=== PATIENT | female | born 1980 | race Caucasian/White ===

== ENCOUNTER 2018-10-06 17:18 | Emergency (ER) | payer BC, OTHER ==
[2018-10-06] MEDS ORDERED: traMADol 50 MG Tab ONE (18:18)
[2018-10-06] MEDS ORDERED: traMADol 50 MG Tab PO ONE (18:19)
[2018-10-06] MEDS ORDERED: Azithromycin 250 MG Tab ONE (18:20)
[2018-10-06] MEDS ORDERED: Benzonatate 100 MG Cap ONE (18:20)
--- NOTE | 2018-10-06 19:02 | CR ---
DATE OF SERVICE: 10/06/2018 CLINICAL DATA: Cough. PA AND LATERAL CHEST: No priors. The heart size is normal. The lungs are clear. No pneumothorax. No pleural effusions. No evidence of acute intrathoracic disease. [id number] MTDD
--- NOTE | 2018-10-06 20:43 | ER ---
DATE OF SERVICE: 10/06/2018 HISTORY OF PRESENT ILLNESS: The patient is a 38-year-old female comes in with a 3-week history of cough. She notes she thought she was getting better after a week or so and then the last week or so, she started getting worse again. She occasionally coughs up some yellowish sputum. She does not have any shaking chills or shortness of breath, but she notes that she was getting progressively worse. ALLERGIES: ACETAMINOPHEN, CODEINE, AND PERCOCET, ALL OF WHICH GIVE HER HEADACHE. SHE CURRENTLY HAS A HEADACHE AND WOULD LIKE SOMETHING FOR THAT. PAST MEDICAL PROBLEMS: Include atrial fibrillation and cardiomyopathy. CURRENT MEDICATIONS: Levothyroxine 25 mcg p.o. daily, Coreg 3.125 and 12.5 p.o. b.i.d., lisinopril 10 mg p.o. daily, and 81 mg aspirin. She notes her most recent ejection fraction is 55% and she was on Coumadin while in AFib, but is not on it now. PHYSICAL EXAMINATION: GENERAL: She is alert and oriented, no apparent distress, but she does have a harsh cough. VITAL SIGNS: Temperature is 101.3, O2 saturation is 95% on room air, blood pressure is 137/72, O2 saturation is 97%. Her pulse is 95. HEENT: TMs normal. Nares are clear. Throat is minimally erythematous. NECK: Supple. No nodes. LUNGS: Basically clear, although there are some questionable crackles in the right mid lung field. No real wheezes. HEART: Regular sinus rhythm. EXTREMITIES: No clubbing, cyanosis, or edema. IMAGING: We did go ahead and obtain a chest x-ray which did not show any acute infiltrate. Radiology review is pending. ASSESSMENT: Bronchitis. PLAN: I have given the patient some azithromycin as a Z-Marciano. She can take 500 mg a day for 3 days or she can take it to 500 the first day and 250 for 4 more days. 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 She can decide personally and would just take the 500 each day for 3 days. We also gave her a couple of benzonatate tablets for the cough or benzonatate Perles for the cough and a prescription for 20 more. The patient to return to clinic for any worsening symptoms or not getting better over the next several days. ALEJANDRA/REGULO /[id number] MTDD
== END 2018-10-06 18:37 | disposition home or self-care (01) ==
LOC: LB.ED 17:18
DX: J40 Bronchitis, not specified as acute or chronic (principal); I48.91 Unspecified atrial fibrillation; Z88.5 Allergy status to narcotic agent; Z88.6 Allergy status to analgesic agent; Z79.01 Long term (current) use of anticoagulants
CPT/HCPCS: 71046; 99283-25; A9270-GY

== ENCOUNTER 2021-02-20 17:38 | Emergency (ER) | payer MEDICAID, OTHER, SELFPAY ==
--- NOTE | 2021-02-20 18:51 | EDM.PDOC ---
ED HPI GENERAL MEDICAL PROBLEM - General Chief Complaint: Fever Stated Complaint: sore throat, fever Time Seen by Provider: 02/20/21 18:40 Source of Information: Reports: Patient History Limitations: Reports: No Limitations - History of Present Illness INITIAL COMMENTS - FREE TEXT/NARRATIVE: This patient presents to the emergency department for evaluation of a sore throat. She states that she did not feel well last evening and then woke this morning with a fever of 101. She was able to take Tylenol and that seemed to take care of that. She has developed a sore throat during the day today. She denies a cough. Her appetite is fair but she is drinking fluids fairly well. She had one episode of vomiting just prior to arrival and no diarrhea. She did have a negative Covid test today. He has not - Related Data Allergies Allergy/AdvReac Type Severity Reaction Status Date / Time acetaminophen [From Percocet] AdvReac Headache Verified 10/06/18 17:54 codeine AdvReac Headache Verified 10/06/18 17:54 oxycodone [From Percocet] AdvReac Headache Verified 10/06/18 17:54 Home Meds: Home Meds Aspirin 81 mg PO DAILY 02/06/14 [History] carvediloL [Carvedilol] 3.125 mg PO BID 02/06/14 [History] lisinopriL [Prinivil] 10 mg PO DAILY 02/06/14 [History] carvediloL [Carvedilol] 12.5 mg PO BID 05/25/16 [History] Levothyroxine Sodium [Synthroid] 25 mcg PO ACBREAKFAST #30 tab 05/26/16 [Rx] Past Medical History HEENT History: Reports: Impaired Vision Cardiovascular History: Reports: Afib, Cardiomyopathy Other Cardiovascular History: patient has familial cardiomyopathy. 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 HEENT: Reports: Throat Pain, Other (Palpable anterior cervical nodes bilaterally.). Denies: Ear Pain ED EXAM, ENT - Physical Exam Exam: See Below Exam Limited By: No Limitations General Appearance: Alert, No Apparent Distress Eye Exam: Bilateral Eye: Normal Inspection, PERRL Ears: Normal External Exam, Normal TMs Nose: Normal Inspection, Normal Mucousa Mouth/Throat: Throat Pain, Throat Swelling, Tonsillar Erythema, Tonsillar Exudates Course - Orders/Labs/Meds Labs: Laboratory Tests 02/20/21 Range/Units 17:55 SARS CoV-2 RNA Rapid JAYE Negative - Re-Assessments/Exams Free Text/Narrative Re-Assessment/Exam: 02/20/21 18:56 This patient presents to the ER for evaluation of a sore throat. She does have a positive rapid strep in the emergency department. There is no evidence of peritonsillar abscess, retropharyngeal abscess, Lemierre's syndrome, epiglottitis, or Gallito's angina. She will be treated with penicillin, 500 mg 3 times a day orally. Supportive care was discussed. She is to return if she has increasing pain, changes in her voice, neck pain, vomiting, fever, or shortness of breath. She should follow-up with her primary care provided as needed. Departure - Departure Time of Disposition: 19:00 Disposition: Home, Self-Care 01 Condition: Good Clinical Impression: Strep pharyngitis - Discharge Information *PRESCRIPTION DRUG MONITORING PROGRAM REVIEWED*: Not Applicable *COPY OF PRESCRIPTION DRUG MONITORING REPORT IN PATIENT PHI: Not Applicable Instructions: Strep Throat, Adult Referrals: PCP,None [Primary Care Provider] - Forms: ED Department Discharge
[2021-02-20] MEDS ORDERED: Penicillin V Potassium 250 MG Tab ONE (19:00)
== END 2021-02-20 18:58 | disposition home or self-care (01) ==
LOC: LB.ED 17:38
DX: J02.0 Streptococcal pharyngitis (principal); Z88.5 Allergy status to narcotic agent; Z88.8 Allergy status to other drugs, medicaments and biological substances; Z79.82 Long term (current) use of aspirin; Z79.899 Other long term (current) drug therapy; Z20.822 Contact with and (suspected) exposure to COVID-19
CPT/HCPCS: 99283; A9270-GY; U0002

== ENCOUNTER 2021-12-20 17:22 | Emergency (ER) | payer MEDICAID ==
[2021-12-20 17:55] VITALS: BP 107/67; PULSE 72
== END 2021-12-20 18:00 | disposition home or self-care (01) ==
LOC: LB.ED 17:22
DX: B35.3 Tinea pedis (principal); Z79.899 Other long term (current) drug therapy; Z79.82 Long term (current) use of aspirin; Z88.0 Allergy status to penicillin; Z88.8 Allergy status to other drugs, medicaments and biological substances
CPT/HCPCS: 99282; 99283

== ENCOUNTER 2022-02-26 11:50 | Emergency (ER) | payer MEDICAID ==
[2022-02-26 11:59] VITALS: BP 112/67; PULSE 64
[2022-02-26] MEDS: Ketorolac 60 MG/2 ML SDV IM ONE (12:13)
== END 2022-02-26 12:45 | disposition home or self-care (01) ==
LOC: LB.ED 11:50
DX: S93.431A Sprain of tibiofibular ligament of right ankle, initial encounter (principal); X50.1XXA Overexertion from prolonged static or awkward postures, initial encounter
CPT/HCPCS: 73610-RT; 96372; 99283; J1885